=== PATIENT | male | born 1960 | race Caucasian/White ===

== ENCOUNTER 2016-10-17 14:13 | Emergency (ER) | payer OTHER ==
[~2016-10-17] VITALS: Ht 193 cm; Wt 112.0 kg
[~2016-10-17 14:13] MED LIST: NAPR500T PO; TAMS5CAP PO
[2016-10-17 14:15] VITALS: BP 133/75; PULSE 76; RESP 20; TEMP 97.6; O2SAT 97
--- NOTE | 2016-10-17 14:24 | PD ---
Physical Exam Time Seen by Provider: 14:22 Narrative 56yo M c/o left heel wound x3 months with worsening. No known injury. PCP wanted to watch it and has not f/u with PCP again. Denies, fever, vomiting. VSS Seen in triage, awaiting bed placement. Data Data Last Documented VS Vital Signs Date Time Temp Pulse Resp B/P Pulse Ox O2 Delivery O2 Flow Rate FiO2 10/17/16 14:15 97.6 76 20 133/75 97 Room Air MDM Supervised Visit with MARI: Consuelo Ortiz Oct 17, 2016 14:24
--- NOTE | 2016-10-17 14:47 | PD ---
HPI . left ankle wound Chief Complaint: Skin Problem Time Seen by Provider: 14:47 Travel History International Travel<30 days: No Contact w/Intl Traveler<30days: No Traveled to known affect area: No History of Present Illness HPI 56-year-old male with COPD and ? DM (not taking metformin per his reports) who is followed by the [facility] residency program here with complaints of a left medial malleolus wound that has been present for over 3 months. Patient was previously seen in the family practice clinic and told that he needs to change his shoes as it was believed that they may have been scratching against his skin and causing this issue. Today he is here for reevaluation as he missed his primary care follow-up. He is here to check to make sure the wound is not infected. He tells me that it has been unchanged since his first visit with his primary care provider. He denies any drainage, redness or swelling. He tells me that the scab has been there and has not yet fallen off. He denies any fever or chills. PFSH Past Medical History Arthritis: Yes (RHEUMATOID) Asthma: Yes Anxiety: Yes Depression: Yes Cardiovascular Problems: Yes (PALPITATIONS) High Cholesterol: Yes COPD: Yes Coronary Artery Disease: Yes Diabetes: Yes (borderline) Patient Takes Glucophage: No Diminished Hearing: No Diverticulitis: Yes Gastrointestinal Disorders: Yes (IBS) GERD: Yes Hypertension: Yes Respiratory: Yes (EMPHYSEMA) Influenza Vaccination: Yes Past Surgical History Body Medical Devices: IRRITABLE BOWEL Cholecystectomy: Yes Ear Surgery: Yes (RIGHT) Oral Surgery: Yes (CLEFT LIP SURGERY A CHILD) Social History Alcohol Use: No (quit) Tobacco Use: No Substance Use: No Allergies-Medications (Allergen,Severity, Reaction): Coded Allergies: No Known Allergies (Verified , 10/17/16) Reported Meds & Prescriptions Reported Meds & Active Scripts Active Naproxen 500 Mg Tab 500 Mg PO BID Flomax (Tamsulosin HCl) 0.4 Mg Cap 0.4 Mg PO HS Review of Systems General / Constitutional: No: Fever Eyes: No: Visual changes HENT: No: Headaches Cardiovascular: No: Chest Pain or Discomfort Respiratory: No: Shortness of Breath Gastrointestinal: No: Abdominal Pain Genitourinary: No: Dysuria Musculoskeletal: No: Pain Skin: Positive Other (left medial ankle wound ), No Rash Neurologic: No: Weakness Psychiatric: No: Depression Endocrine: No: Polydipsia Hematologic/Lymphatic: No: Easy Bruising Physical Exam Narrative GENERAL: AAO x 3, no acute distress, Well-nourished, well-developed patient. SKIN: Warm and dry. No visible rashes or bruising. Patient has a scabbed over wound on his left medial ankle lying over his posterior tibial area. There is no surrounding erythema, no edema, no warmth, no drainage or any evidence of cellulitis. The wound appears to be healing, however there are some local varicosities. HEAD: Normocephalic and atraumatic. EYES: No scleral icterus. No injection or drainage. ENT: No nasal drainage noted. Mucous membranes pink. Airway patent. NECK: Supple, trachea midline. No JVD. CARDIOVASCULAR: Regular rate and rhythm without murmurs, gallops, or rubs. RESPIRATORY: Breath sounds equal bilaterally. No accessory muscle use. No rhonchi or rales. GASTROINTESTINAL: Abdomen soft, non-tender, nondistended. EXTREMITIES: No cyanosis or edema. BACK: Nontender without obvious deformity. No CVA tenderness. PSYCH: AAO x 3, normal affect. Data Data Last Documented VS Vital Signs Date Time Temp Pulse Resp B/P Pulse Ox O2 Delivery O2 Flow Rate FiO2 10/17/16 14:15 97.6 76 20 133/75 97 Room Air MDM Medical Decision Making Medical Screen Exam Complete: Yes Emergency Medical Condition: Yes Medical Record Reviewed: Yes Differential Diagnosis chronic wound, less likely cellulitis, less likely sepsis Narrative Course 56-year-old male with COPD and ? DM (not taking metformin per his reports) who is followed by the family practice residency program here with complaints of a left medial malleolus wound that has been present for over 3 months. Patient was previously seen in the family practice clinic and told that he needs to change his shoes as it was believed that they may have been scratching against his skin and causing this issue. Today he is here for reevaluation as he missed his primary care follow-up. He is here to check to make sure the wound is not infected. He tells me that it has been unchanged since his first visit with his primary care provider. He denies any drainage, redness or swelling. He tells me that the scab has been there and has not yet fallen off. He denies any fever or chills. Patient seen and examined. He does have what appears to be a healing wound on his left medial ankle. I believe that the patient has some circulation issues that may be contributing to his slow healing. There are some questions whether or not he is diabetic, which could also contribute to slow healing. I explained that this is not an acute infection. Antibiotics are not warranted. Ultimately he would benefit from a follow-up with his primary care provider for referral to the wound care center for further evaluation. I explained to the patient that if this wound is not allowed to heal properly, that he could suffer a loss of limb. Patient tells me he will follow-up with his primary care provider. Patient verbalized understanding of instructions, questions were answered, and thanked me for their care. I advised them if their condition worsens, please return to the nearest emergency room for further care. Diagnosis Primary Impression: Leg wound, left Qualified Code: S81.802A - Leg wound, left, initial encounter Patient Instructions: Chronic Wound Care (ED), General Instructions Additional Instructions: As we discussed, please follow-up with your primary care provider for recommendations for chronic wound care. As I explained, this wound is not actively infected. Please see treatment sooner than later. Ignoring these recommendations can lead to a loss of limb, if this wound becomes infected. [place] for worsening signs of infection which include increased redness, increased warmth, purulent drainage, increased swelling or streaking. If any of these are present, return to the nearest emergency department. Med/Other Pt SpecificInfo: No Meds Exist/No RX given Disposition: 01 DISCHARGE HOME Condition: Stable Vesna Morales Oct 17, 2016 14:47
[2016-12-09] MEDS ORDERED: TAMS5CAP PO (09:14)
[2016-12-09] MEDS ORDERED: NAPR500T PO (09:14)
== END 2016-10-17 15:18 | disposition home or self-care (01) ==
LOC: NEPK 14:13
DX: S81.802D Unspecified open wound, left lower leg, subsequent encounter (principal); I10 Essential (primary) hypertension; R73.03 Prediabetes; E78.00 Pure hypercholesterolemia, unspecified; Z87.09 Personal history of other diseases of the respiratory system; Z87.39 Personal history of other diseases of the musculoskeletal system and connective tissue; Z86.59 Personal history of other mental and behavioral disorders; Z86.79 Personal history of other diseases of the circulatory system; Z87.19 Personal history of other diseases of the digestive system; X58.XXXD Exposure to other specified factors, subsequent encounter
CPT/HCPCS: 99282

== ENCOUNTER 2017-09-14 23:20 | Emergency (ER) | payer OTHER ==
[~2017-09-14] VITALS: Ht 193 cm; Wt 110.0 kg
[~2017-09-14 23:20] MED LIST changes: +CIAL5TAB PO; -NAPR500T PO; +NAPR500T2 PO
[2017-09-14 23:49] VITALS: BP 138/86; PULSE 67; RESP 16; TEMP 97.6; O2SAT 99
[2017-09-15 02:37] VITALS: BP 152/87; PULSE 66; RESP 18; TEMP 97.9; O2SAT 99
--- NOTE | 2017-09-15 03:08 | PD ---
HPI Chief Complaint: Skin Problem Time Seen by Provider: 02:41 Travel History International Travel<30 days: No Contact w/Intl Traveler<30days: No Traveled to known affect area: No History of Present Illness HPI 57yo M with PMH of prediabetes, bilateral foot ulcers here for evaluation of his foot ulcers. Pt has bilateral medial malleolus ulcers and said that there is some increased redness around the left ulcer and he was worry about infection. Denies any fever, chest pain, sob, n/v, abdominal pain, focal weakness or numbness. Denies any trauma. PFSH Past Medical History Arthritis: Yes (RHEUMATOID) Asthma: Yes Anxiety: Yes Depression: Yes Cardiovascular Problems: Yes (PALPITATIONS) High Cholesterol: Yes COPD: Yes Coronary Artery Disease: Yes Diabetes: Yes (borderline) Patient Takes Glucophage: No Diminished Hearing: No Diverticulitis: Yes Gastrointestinal Disorders: Yes (IBS) GERD: Yes Hypertension: Yes Respiratory: Yes (EMPHYSEMA) Tetanus Vaccination: > 5 Years Influenza Vaccination: No Past Surgical History Body Medical Devices: IRRITABLE BOWEL Cardiac Surgery: Yes (cath) Cholecystectomy: Yes Ear Surgery: Yes (RIGHT) Oral Surgery: Yes (CLEFT LIP SURGERY A CHILD) Social History Alcohol Use: No (quit) Tobacco Use: No Substance Use: No Allergies-Medications (Allergen,Severity, Reaction): Coded Allergies: No Known Allergies (Verified Adverse Reaction, Unknown, 09/15/17) Reported Meds & Prescriptions Reported Meds & Active Scripts Active No Active Prescriptions or Reported Medications Review of Systems Except as stated in HPI: all other systems reviewed are Neg Physical Exam Narrative GENERAL: 57yo M not in distress. SKIN: Focused skin assessment warm/dry. HEAD: Atraumatic. Normocephalic. CARDIOVASCULAR: Regular rate and rhythm. No murmur appreciated. RESPIRATORY: No accessory muscle use. Clear to auscultation. Breath sounds equal bilaterally. GASTROINTESTINAL: Abdomen soft, non-tender, nondistended. MUSCULOSKELETAL: LLE: +Discoloration and 3cm ulcer in left medial malleolus. Not drainage. There is mild erythema and warmth surrounding the ulcer. DP 2+. Sensation intact. RLE: +3cm ulcer in right medial malleolus. No drainage. DP 2+. Sensation intact. NEUROLOGICAL: Awake and alert. No obvious cranial nerve deficits. Motor grossly within normal limits. Normal speech. PSYCHIATRIC: Appropriate mood and affect; insight and judgment normal. Data Data Last Documented VS Vital Signs Date Time Temp Pulse Resp B/P (MAP) Pulse Ox O2 Delivery O2 Flow Rate FiO2 09/15/17 02:37 97.9 66 18 152/87 (108) 99 MDM Medical Decision Making Medical Screen Exam Complete: Yes Emergency Medical Condition: Yes Differential Diagnosis Cellulitis vs. chronic venous ulcer Narrative Course 57yo well appearing male with chronic venous ulcers but said he has new increased erythema around left ulcer and is concern for infection. Can be early cellulitis so will cover with antibiotics. Vital signs normal and pt has no other complaints. Will have pt follow up with podiatry. Return precautions given. Diagnosis Primary Impression: Cellulitis Qualified Codes: L03.116 - Cellulitis of left lower limb Patient Instructions: General Instructions Departure Forms: Tests/Procedures Additional Instructions: Please follow up with your primary care physician or podiatry for wound check and wound check. Return to the ED if symptoms worsen. Med/Other Pt SpecificInfo: Prescription(s) given Scripts Sulfamethoxazole-Trimethoprim (Bactrim DS) 800-160 Mg Tab 1 TAB PO BID for Infection, #14 TAB 0 Refills Prov: SpearsHaydee 09/15/17 Disposition: 01 DISCHARGE HOME Condition: Stable SpearsHaydee Sep 15, 2017 03:08
[2017-09-15] MEDS ORDERED: BACT800T5 PO (03:29)
[2017-09-15] MEDS ORDERED: SULFAMETHOXAZOLE-TRIMETHOPRIM DS 800-160 MG TAB PO ONE (03:30)
== END 2017-09-15 03:41 | disposition home or self-care (01) ==
LOC: NEPC 23:20
DX: L03.116 Cellulitis of left lower limb (principal)
CPT/HCPCS: 99283